=== PATIENT | female | born 1965 | race Two or more races ===

== ENCOUNTER 2019-11-29 10:27 | Emergency (ER) | payer OTHER ==
[~2019-11-29] VITALS: Ht 170.2 cm; Wt 78.9 kg
[~2019-11-29 10:27] MED LIST: AMPH20TA PO; METH10TA6 PO; SERT-160 PO
[2019-11-29 14:50] VITALS: BP 121/80
== END 2019-11-29 14:57 | disposition home or self-care (01) ==
LOC: ER 10:35
DX: M79.601 Pain in right arm (principal); E07.9 Disorder of thyroid, unspecified
CPT/HCPCS: 73030; 93971